=== PATIENT | male | born 1955 | race Caucasian/White ===

== ENCOUNTER 2019-11-20 11:28 | Inpatient (IN) ==
[2019-11-20] MEDS: NS 1,000 ML IV SCH (13:41)
[2019-11-20] MEDS: LEVAQUIN 500 MG/D5W 500 MG/100 ML IVPB IV SCH (13:41)
[2019-11-20] MEDS: PROTONIX IV SCH (13:41)
[2019-11-20 13:56] LABS: BASO# 0.13 X1000 (0.0-0.2); BASO% 0.6 % (0.0-0.8); EOS# 0.02 X1000 (0.0-0.7); EOS% 0.1 % (0.0-10.0); HEMATOCRIT 44.9 % (42.0-52.0); HEMOGLOBIN 15.1 g/dL (14.0-18.0); IMM GRAN# 0.15 X1000 (0.0-0.04); IMM GRAN% 0.6 % (0.0-0.5); LYMPH# 3.71 X1000 (1.2-3.4); LYMPH% 15.7 % (20.5-51.1); MCH 30.4 PG (27-31); MCHC 33.6 g/dL (33-37); MCV 90.3 FL (81-99); MONO# 2.28 X1000 (0.11-0.59); MONO% 9.7 % (1.7-9.3); MPV 11.8 FL (7.4-10.4); NEUT# 17.33 X1000 (1.4-6.5); NEUT% 73.3 % (42.2-75.2); PLT 186 X1000 (130-400); RBC 4.97 XMIL (4.7-6.1); RDW 13.6 % (11.5-14.5); WBC 23.62 X1000 (4.8-10.8)
[2019-11-20 14:15] LABS: AGAP 16; ALBUMIN 3.9 g/dL (3.5-5.0); ALKALINE PHOSPHATASE 78 U/L (32-122); BUN 21 mg/dL (8-22); CHLORIDE 93 mmol/L (98-107); COSMO 275; CREATININE 1.1 mg/dL (0.7-1.2); ESTIMATED GFR > 60; GLUCOSE 205 mg/dL (70-104); GOT 24 U/L (10-34); GPT 32 U/L (10-44); LIPASE 20 U/L (13-60); POTASSIUM 4.3 mmol/L (3.5-5.1); SODIUM 133 mmol/L (136-145); TCO2 24 mmol/L (25-35); TOTAL BILIRUBIN 0.96 mg/dL (0.20-1.00); TOTAL PROTEIN 7.7 g/dL (6.3-8.3)
[2019-11-20 14:18] LABS: BANDS 2 % (0-1); LYMPHS 12 % (21-51); SEGS 78 % (42-75)
[2019-11-20 14:19] LABS: LARGE PLATELETS OCCASIONAL
[2019-11-20 14:20] LABS: ANISOCYTOSIS 1+
[2019-11-20] MEDS: ZOSYN 3.375 GM in NS 50 ML IV SCH ×4 (15:40→22:01)
[2019-11-20] MEDS ORDERED: ZOSYN ONE (16:38)
[2019-11-20] MEDS: TYLENOL PO PRN (18:34)
--- NOTE | 2019-11-20 20:47 | HISTORY AND PHYSICAL ---
CHIEF COMPLAINT: Left-sided flank pain, left testicle pain since yesterday. HISTORY OF PRESENT ILLNESS: He is a 64-year-old white gentleman who came to my office with the above complaints. Patient has inflamed prostate with tenderness, has epididymitis, left side worse than the right side. Positive percussion sign noted. Ultrasound showed splenomegaly, gallstones, and kidney stones in the left kidney. White cell count 24,000. He is basically admitted to the hospital with arthritis, epididymitis with impending orchitis and very symptomatic. He needs aggressive IV antibiotics. In my office urine dipstick is positive for infection. As a result, a hospital admission was warranted. The patient was seen last in my office 07/24/2019. PAST MEDICAL HISTORY: Gallstones, diverticulosis, CAD status post bypass surgery, type 2 diabetes, metabolic syndrome, fatty liver, borderline splenomegaly due to LAWSON, hyperlipidemia, hypertension, partial biceps tendon ruptures on both sides, kidney stones, sleep apnea with apnea- hypopnea index 21 per hour, PAF, prepatellar bursitis, right knee, resolving. PAST SURGICAL HISTORY: DNS surgery repair, right hand fracture, and bypass surgery. MEDICATIONS: Metformin 500 p.o. b.i.d., vitamin C 250 daily, Eliquis 5 mg p.o. b.i.d., Januvia 100 daily, metoprolol 50 p.o. b.i.d., aspirin 81 mg daily, amlodipine 5 mg daily, Crestor 5 mg daily, hydrochlorothiazide 25 daily, MiraLAX 17 grams daily, Urocit, potassium 15 mEq daily. ALLERGIES: Not known. SOCIAL HISTORY: 28 years, one child. Lives in [place]. Working in [employer] and [employer]. No smoking. No alcohol. No drug abuse. FAMILY HISTORY: Father had a bypass surgery, is alive. Mom of breast cancer in 1989. HEALTH MAINTENANCE: Flu vaccine refused. Last tetanus Tdap 2018. Last digital prostate exam 02/2018, colonoscopy [address] Bergeron. REVIEW OF SYSTEMS: HEENT: No headache. No vision problem. No earache. No sore throat. Neck: No goiter. No lymphadenopathy. No bruit. Cardiopulmonary: No chest pain, shortness of breath, PND, orthopnea. GI: No nausea, vomiting, abdominal pain. Belly pain on the left side and dysuria and frequency. Left testicle pain. Musculoskeletal: No joint pain. Neurologic: No focal symptoms or weakness. PHYSICAL EXAMINATION: VITAL SIGNS: Temperature 99.2 degrees, pulse is 70. Vitals are stable. 5 feet 11 and 239 pounds. HEENT: Atraumatic, normocephalic. Pupils equal, react to light. TMs are normal. Nose and throat within normal limits. NECK: Supple. No lymphadenopathy. No goiter. CHEST: Bilateral air entry. HEART: Sounds are regular. No murmur. ABDOMEN: Belly is soft, nontender. Good bowel sounds. GENITOURINARY: Prostate is boggy, tender and the left testicle is inflamed. Positive Prehn's sign. NEUROLOGIC: No neurological deficits. INVESTIGATIONS: White cell count 23, hematocrit 44, platelets 186,000. SMA 7 is normal. Sodium 133. LFTs were normal. Ultrasound of the abdomen, kidney stones in the left kidney, gallstones, splenomegaly, fatty liver, epididymitis. Blood cultures, urine cultures are pending. ASSESSMENT AND PLAN: 1. A 64-year-old white gentleman admitted to the hospital with epididymitis and prostatitis. Plan is will use Levaquin and Zosyn. Follow up on urine cultures and blood cultures. Intravenous fluids. 2. Hyponatremia. 3. Deep venous thrombosis and gastrointestinal prophylaxes with Lovenox and Nexium and Protonix. Slowly reconcile home medications. He does not need Lovenox since he is on Eliquis. 4. Type 2 diabetes. Sliding scale insulin coverage. 5. CT renal stone search. 6. Coronary artery disease status post bypass surgery. Continue on secondary prevention. 7. Paroxysmal atrial fibrillation. On Eliquis. 8. Asymptomatic gallstones. Will follow up. cc: Robert Alegria MD
[2019-11-20] MEDS: CRESTOR PO SCH (22:01)
[2019-11-20] MEDS: ELIQUIS PO SCH (22:01)
[2019-11-20] MEDS: NORVASC PO SCH (22:02)
[2019-11-20] MEDS: LOPRESSOR PO SCH (22:02)
[2019-11-21] MEDS: ZOSYN 3.375 GM in NS 50 ML IV SCH ×3 (01:54→17:40)
[2019-11-21] MEDS: TYLENOL PO PRN ×2 (03:38→21:53)
[2019-11-21 06:12] LABS: BASO# 0.06 X1000 (0.0-0.2); BASO% 0.4 % (0.0-0.8); EOS# 0.23 X1000 (0.0-0.7); EOS% 1.5 % (0.0-10.0); HEMATOCRIT 42.5 % (42.0-52.0); HEMOGLOBIN 14.3 g/dL (14.0-18.0); IMM GRAN% 0.6 % (0.0-0.5); LYMPH# 3.37 X1000 (1.2-3.4); LYMPH% 21.6 % (20.5-51.1); MCH 30.6 PG (27-31); MCHC 33.6 g/dL (33-37); MCV 90.8 FL (81-99); MONO# 1.77 X1000 (0.11-0.59); MONO% 11.3 % (1.7-9.3); MPV 12.2 FL (7.4-10.4); NEUT# 10.09 X1000 (1.4-6.5); NEUT% 64.6 % (42.2-75.2); PLT 141 X1000 (130-400); RBC 4.68 XMIL (4.7-6.1); RDW 13.4 % (11.5-14.5); WBC 15.62 X1000 (4.8-10.8)
[2019-11-21 06:28] LABS: AGAP 11; BUN 18 mg/dL (8-22); CALCIUM 9.2 mg/dL (8.8-10.2); CHLORIDE 96 mmol/L (98-107); COSMO 274; CREATININE 1.1 mg/dL (0.7-1.2); ESTIMATED GFR > 60; GLUCOSE 161 mg/dL (70-104); POTASSIUM 3.9 mmol/L (3.5-5.1); SODIUM 134 mmol/L (136-145); TCO2 27 mmol/L (25-35)
[2019-11-21] MEDS ORDERED: MIRALAX PO SCH (09:00)
[2019-11-21] MEDS: ASPIRIN PO SCH (10:29)
[2019-11-21] MEDS: LOPRESSOR PO SCH ×2 (10:29→21:36)
[2019-11-21] MEDS: VITAMIN C PO SCH (10:29)
[2019-11-21] MEDS: HYDROCHLOROTHIAZIDE PO SCH (10:29)
[2019-11-21] MEDS: JANUVIA PO SCH (10:30)
[2019-11-21] MEDS: ELIQUIS PO SCH ×2 (10:30→21:36)
[2019-11-21 11:08] LABS: HEPATITIS PROFILE ACUTE SEE COMMENTS
[2019-11-21] MEDS: PROTONIX IV SCH (12:33)
[2019-11-21] MEDS: SODIUM CHLORIDE 0.9% INJ SCH (12:33)
[2019-11-21] MEDS: LEVAQUIN 500 MG/D5W 500 MG/100 ML IVPB IV SCH (14:19)
[2019-11-21] MEDS: NS 1,000 ML IV SCH (17:45)
--- NOTE | 2019-11-21 20:28 | PROGRESS NOTE ---
DATE: 11/21/2019 SUBJECTIVE: The patient is a little better. No belly pain. Has some testicular pain, elevation is helping. PHYSICAL EXAMINATION: Temperature is 98 degrees, vitals are stable.HEENT: Within normal limits. Neck: Supple. Chest: Bilateral air entry. Heart: Sounds are regular. Abdomen: Belly is soft, nontender. Good bowel sounds. 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 INVESTIGATIONS: White cell count 15, hematocrit 42, platelets 141,000. Sodium 134, potassium 3.1, BUN 18, creatinine 1.1. Hepatitis panel was negative. Urine cultures, blood cultures are pending. ASSESSMENT: 1. Left epididymitis. 2. Prostatitis. 3. History of kidney stones. 4. History of gallstones. PLAN: IV fluids, IV Levaquin and Zosyn, and we will follow up on the cultures and if he continues to improve we will treat as an outpatient with oral antibiotics for 4 to 6 weeks. LEVEL OF DOCUMENTATION: 25 minutes. cc: Robert Alegria MD
[2019-11-21] MEDS: NORVASC PO SCH (21:36)
[2019-11-21] MEDS: CRESTOR PO SCH (21:36)
[2019-11-22] MEDS: ZOSYN 3.375 GM in NS 50 ML IV SCH ×6 (00:56→23:16)
[2019-11-22 06:51] LABS: BASO# 0.05 X1000 (0.0-0.2); BASO% 0.5 % (0.0-0.8); EOS% 5.2 % (0.0-10.0); HEMATOCRIT 42.1 % (42.0-52.0); HEMOGLOBIN 14.1 g/dL (14.0-18.0); IMM GRAN# 0.05 X1000 (0.0-0.04); IMM GRAN% 0.5 % (0.0-0.5); LYMPH# 2.22 X1000 (1.2-3.4); LYMPH% 23.2 % (20.5-51.1); MCH 30.3 PG (27-31); MCHC 33.5 g/dL (33-37); MCV 90.5 FL (81-99); MONO# 1.12 X1000 (0.11-0.59); MONO% 11.7 % (1.7-9.3); MPV 12.2 FL (7.4-10.4); NEUT# 5.63 X1000 (1.4-6.5); NEUT% 58.9 % (42.2-75.2); PLT 160 X1000 (130-400); RBC 4.65 XMIL (4.7-6.1); RDW 13.3 % (11.5-14.5); WBC 9.57 X1000 (4.8-10.8)
[2019-11-22 07:18] LABS: AGAP 12; BUN 15 mg/dL (8-22); CALCIUM 9.2 mg/dL (8.8-10.2); CHLORIDE 101 mmol/L (98-107); COSMO 280; CREATININE 0.9 mg/dL (0.7-1.2); ESTIMATED GFR > 60; GLUCOSE 159 mg/dL (70-104); POTASSIUM 3.9 mmol/L (3.5-5.1); SODIUM 138 mmol/L (136-145); TCO2 25 mmol/L (25-35)
[2019-11-22] MEDS: NS 1,000 ML IV SCH ×4 (07:44→23:10)
[2019-11-22] MEDS: ASPIRIN PO SCH (09:00)
[2019-11-22] MEDS: ELIQUIS PO SCH ×2 (09:00→23:09)
[2019-11-22] MEDS: JANUVIA PO SCH (09:00)
[2019-11-22] MEDS: VITAMIN C PO SCH (09:00)
[2019-11-22] MEDS: LEVAQUIN 500 MG/D5W 500 MG/100 ML IVPB IV SCH (14:59)
[2019-11-22] MEDS ORDERED: BLISTEX MEDICATED BERRY LIP BALM TOP PRN (15:05)
[2019-11-22] MEDS: HYDROCHLOROTHIAZIDE PO SCH (15:33)
[2019-11-22] MEDS: LOPRESSOR PO SCH ×2 (15:33→23:09)
[2019-11-22] MEDS: PROTONIX IV SCH (15:34)
--- NOTE | 2019-11-22 16:54 | PROGRESS NOTE ---
DATE: 11/22/2019 SUBJECTIVE: The patient is doing better and urine cultures grew Escherichia coli sensitive to Levaquin. PHYSICAL EXAMINATION: On exam, the patient has temperature of 99.9 degrees, pulse 77. Vitals are stable. Physical exam with no change. ASSESSMENT: Urinary tract infection due to prostatitis, epididymitis No torsion on the ultrasound. PLAN: Continue Levaquin and Zosyn and slowly change to Levaquin. White cell count coming back to normal. If he is stable tomorrow we will transition him to p.o. antibiotics for at least 4 to 6 weeks. Discussed the plan of care. Continue IV fluids. DVT GI prophylaxis as per the order sheet, on Eliquis and proton pump inhibitor, and currently stable. LEVEL OF DOCUMENTATION: 25 minutes. cc: Robert Alegria MD MTDD
[2019-11-22] MEDS: MIRALAX PO SCH (21:00)
[2019-11-22] MEDS: CRESTOR PO SCH (23:09)
[2019-11-22] MEDS: NORVASC PO SCH (23:09)
[2019-11-23] MEDS: ZOSYN 3.375 GM in NS 50 ML IV SCH ×5 (04:13→21:34)
[2019-11-23 07:10] LABS: BASO# 0.06 X1000 (0.0-0.2); BASO% 0.8 % (0.0-0.8); EOS# 0.59 X1000 (0.0-0.7); EOS% 8.1 % (0.0-10.0); HEMATOCRIT 42.1 % (42.0-52.0); HEMOGLOBIN 13.9 g/dL (14.0-18.0); IMM GRAN# 0.03 X1000 (0.0-0.04); IMM GRAN% 0.4 % (0.0-0.5); LYMPH# 2.26 X1000 (1.2-3.4); MCH 29.9 PG (27-31); MCV 90.5 FL (81-99); MONO# 1.15 X1000 (0.11-0.59); MONO% 15.8 % (1.7-9.3); MPV 11.7 FL (7.4-10.4); NEUT% 43.9 % (42.2-75.2); PLT 171 X1000 (130-400); RBC 4.65 XMIL (4.7-6.1); RDW 13.3 % (11.5-14.5); WBC 7.29 X1000 (4.8-10.8)
[2019-11-23 07:32] LABS: AGAP 13; BUN 13 mg/dL (8-22); CALCIUM 9.1 mg/dL (8.8-10.2); CHLORIDE 98 mmol/L (98-107); COSMO 277; CREATININE 1.1 mg/dL (0.7-1.2); ESTIMATED GFR > 60; GLUCOSE 152 mg/dL (70-104); POTASSIUM 4.2 mmol/L (3.5-5.1); SODIUM 137 mmol/L (136-145); TCO2 26 mmol/L (25-35)
[2019-11-23] MEDS: ELIQUIS PO SCH ×2 (09:05→21:35)
[2019-11-23] MEDS: ASPIRIN PO SCH (09:05)
[2019-11-23] MEDS: VITAMIN C PO SCH (09:05)
[2019-11-23] MEDS: JANUVIA PO SCH (09:06)
[2019-11-23] MEDS: PROTONIX IV SCH (11:47)
[2019-11-23] MEDS: SODIUM CHLORIDE 0.9% INJ SCH (11:47)
[2019-11-23] MEDS: NS 1,000 ML IV SCH ×2 (12:57→15:49)
[2019-11-23] MEDS: LEVAQUIN 500 MG/D5W 500 MG/100 ML IVPB IV SCH (14:48)
[2019-11-23] MEDS: LOPRESSOR PO SCH ×2 (15:48→21:35)
[2019-11-23] MEDS: HYDROCHLOROTHIAZIDE PO SCH (15:49)
[2019-11-23] MEDS: TYLENOL PO PRN (16:57)
--- NOTE | 2019-11-23 18:00 | PROGRESS NOTE ---
DATE: 11/23/2019 SUBJECTIVE: The patient is feeling better. Afebrile. Urine cultures grew Escherichia coli. ESBL negative. PHYSICAL EXAMINATION: Temperature is 97 degrees vitals are stable. Physical exam decreased tenderness in the left testicle. LABS: White cell count came back normal. Repeat urine cultures and blood cultures were negative. ASSESSMENT AND PLAN: Epididymitis, prostatitis. Continue outpatient antibiotics Levaquin for 1 month and if he is stable will discharge in the morning and discontinue intravenous fluids. Continue present treatment. LEVEL OF DOCUMENTATION: 25 minutes. cc: Robert Alegria MD
[2019-11-23] MEDS: CRESTOR PO SCH (21:35)
[2019-11-23] MEDS: NORVASC PO SCH (21:35)
[2019-11-23] MEDS: MIRALAX PO SCH (21:35)
[2019-11-24] MEDS: ZOSYN 3.375 GM in NS 50 ML IV SCH ×6 (01:08→22:08)
[2019-11-24] MEDS: JANUVIA PO SCH (10:18)
[2019-11-24] MEDS: HYDROCHLOROTHIAZIDE PO SCH (10:19)
[2019-11-24] MEDS: ASPIRIN PO SCH (10:19)
[2019-11-24] MEDS: LOPRESSOR PO SCH ×2 (10:19→20:23)
[2019-11-24] MEDS: ELIQUIS PO SCH ×2 (10:19→20:24)
[2019-11-24] MEDS: VITAMIN C PO SCH (10:19)
[2019-11-24] MEDS: PROTONIX IV SCH (10:24)
[2019-11-24] MEDS: SODIUM CHLORIDE 0.9% INJ SCH (10:24)
--- NOTE | 2019-11-24 10:43 | Diag Imaging Result Doc PS360 ---
EXAM: US SCROTUM INDICATION: left testicular pain TECHNIQUE: COMPARISON: None. FINDINGS: The testicles are grossly normal in echotexture with no discrete testicular mass or cyst. The right testicle measures 4.2 cm and the left testicle measures 3.8 cm in the greatest dimensions. Both testicles exhibit normal Doppler flow. Both epididymides are prominent and exhibits increased Doppler flow suggesting epididymitis. There are a couple of epididymal head cysts on the left are subcentimeter in size. At the left epididymal tail, there is an irregular hypoechoic focus measuring up to 1.2 cm there is increased blood flow around the lesion. An epididymal abscess cannot be excluded. There are bilateral scrotal hydroceles. IMPRESSION: 1.Prominent epididymides bilaterally with increased Doppler flow suggesting epididymitis with an ill-defined low echotexture focus in the left epididymal tail. Epididymal abscess cannot be excluded. 2.Bilateral hydroceles. Electronically signed by Cholo Yeung 11/24/2019 10:41 AM
[2019-11-24 11:28] LABS: INR 1.18; PROTIME 15.2 Seconds (11.0-16.0)
[2019-11-24] MEDS: LEVAQUIN 500 MG/D5W 500 MG/100 ML IVPB IV SCH (13:23)
--- NOTE | 2019-11-24 15:30 | PROGRESS NOTE ---
DATE: 11/24/2019 SUBJECTIVE: The patient is not getting any better today. On exam left testicle is swollen and extremely red, positive Prehn's sign. He was getting better 2 days ago, now he is worsening. OBJECTIVE: Vital signs: Temperature 99.3 degrees, pulse 58. Vitals are stable. HEENT: Within normal limits. Neck: Supple. Chest: Bilateral air entry. Heart: Sounds are regular. Abdomen: Belly is soft, nontender. Left testicle is extremely tender. LABORATORY: Urine cultures; E. coli and ESBL negative in my office. Repeat urine blood cultures were negative. Repeat ultrasound of the testicle showed possible abscess consistent with epididymitis. ASSESSMENT AND PLAN: 1. Epididymitis and abscess. Hold the discharge. Consider Urology consult. 2. Peripherally inserted central catheter line. Consider IV antibiotics at home. 3. Continue IV Levaquin and Zosyn for the time being, and we will hold the discharge. I spoke to Dr. Flores' he is going to follow up. LEVEL OF DOCUMENTATION: 25 minutes. cc: Robert Alegria MD
--- NOTE | 2019-11-24 16:02 | CONSULTATION ---
DATE OF CONSULTATION: 11/24/2019 CHIEF COMPLAINT: Scrotal pain. HISTORY OF PRESENT ILLNESS: This 64-year-old male was admitted for treatment of prostatitis and epididymitis. His scrotal ultrasound was consistent with hyperemic epididymis on each side. Testes appeared normal. The patient has been on IV Zosyn and Levaquin. He states he feels better and would like to go home. A followup ultrasound revealed the hyperemic epididymis on each side and a comment was made of possible epididymal abscess. The patient states he does not feel any worse and end and is in fact getting better. The patient states he has a long history of a slowing stream and double voiding. He occasionally has urgency and has nocturia 2 to 3 per night. He is not taking any medication for obstructive voiding symptoms. He has a history of kidney stones and had ureteroscopy and stone extraction about 5 years ago. He denies any problems since. The patient's urine culture in Dr. Alegria's office grew Escherichia coli, ESBL negative sensitive to most antibiotics. PAST MEDICAL HISTORY: Diabetes, coronary artery disease, elevated cholesterol, history of kidney stones, hypertension, sleep apnea. CURRENT MEDICATIONS: Documented on the chart and include IV Levaquin and Zosyn. PAST SURGICAL HISTORY: Coronary artery bypass grafting, right hand fracture repair, right ureteroscopy and stone extraction. SOCIAL HISTORY: No known drug allergies. No tobacco use. No alcohol use. ALLERGIES: He denies any problems with chest pains, breathing problems or bowel problems. He states that when he was having bladder pain and prostate pain he saw some blood in his urine but that has resolved after starting IV antibiotics. PHYSICAL EXAMINATION: General: An obese, age apparent, normally developed, white male, oriented in all ways and cooperative. HEENT: Normal for age. Lungs: Clear. Cardiovascular: Regular rate and rhythm. Abdomen: Obese soft, nontender. No hepatosplenomegaly or masses. Normal bowel sounds. Genitourinary: Normal male. Both testes are down. The testes are palpably normal on each side. The epididymis is indurated and swollen on each side. The left side is somewhat tender but there is no fluctuance. Neurologic: No focal deficits. Extremities: No clubbing, cyanosis, or edema. LABORATORY EVALUATION: He has a white count of 7.29, hemoglobin 13.9, hematocrit of 42.1, and platelets are 171,000. Serum electrolytes are normal. BUN 13, creatinine 1.1. Serum glucose is 152. Followup urine cultures obtained in the hospital both blood and urine are no growth. IMPRESSION: 1. Enlarged prostate with obstructive voiding. 2. Resolving prostatitis and bilateral epididymitis. RECOMMEND: 1. Start Flomax 0.4 mg b.i.d. 2. Continue IV antibiotics as scheduled. 3. A scrotal support. 4. Will see patient in the office in 1 week. Thank you for this consultation. cc: MD Robert Romero MD
[2019-11-24] MEDS: NORVASC PO SCH (20:23)
[2019-11-24] MEDS: CRESTOR PO SCH (20:23)
[2019-11-24] MEDS: MIRALAX PO SCH (20:24)
[2019-11-24] MEDS: TYLENOL PO PRN (21:27)
[2019-11-25] MEDS: FLOMAX PO SCH ×3 (02:27→21:20)
[2019-11-25] MEDS: ZOSYN 3.375 GM in NS 50 ML IV SCH ×4 (04:23→21:21)
[2019-11-25] MEDS: PROTONIX PO SCH ×2 (05:07→06:07)
[2019-11-25] MEDS: JANUVIA PO SCH (08:00)
[2019-11-25] MEDS: ASPIRIN PO SCH (08:01)
[2019-11-25] MEDS: ELIQUIS PO SCH ×2 (08:01→21:20)
[2019-11-25] MEDS: VITAMIN C PO SCH (08:01)
[2019-11-25] MEDS: LOPRESSOR PO SCH ×2 (08:01→21:20)
[2019-11-25] MEDS: HYDROCHLOROTHIAZIDE PO SCH (08:01)
--- NOTE | 2019-11-25 12:45 | PROGRESS NOTE ---
DATE: 11/25/2019 SUBJECTIVE: I appreciated Dr. Flores consult. The patient was placed on the truss and started on Flomax. OBJECTIVE: Today on my exam, decreased swelling of the left testicle. Temperature is 97 degrees, vitals are stable. PICC line was placed on the right side. ASSESSMENT: 1. Prostatitis with benign prostatic hypertrophy. 2. Left epididymitis. 3. Diabetes. 4. Coronary artery disease. PLAN: Plan of care is unable to arrange outpatient IV antibiotics. We will keep him until Wednesday. Continue IV Levaquin and Zosyn. Elevation of the truss, and continue present treatment. Discussed with [place] social work msw, we will arrange IV Levaquin once daily for 3 weeks on Wednesday and discharge. LEVEL OF DOCUMENTATION: 25 minutes. cc: Robert Alegria MD
[2019-11-25] MEDS: LEVAQUIN 500 MG/D5W 500 MG/100 ML IVPB IV SCH (13:51)
[2019-11-25] MEDS: TYLENOL PO PRN ×2 (16:32→22:11)
[2019-11-25] MEDS: CRESTOR PO SCH (21:20)
[2019-11-25] MEDS: NORVASC PO SCH (21:20)
[2019-11-25] MEDS: MIRALAX PO SCH (21:21)
[2019-11-26] MEDS: ZOSYN 3.375 GM in NS 50 ML IV SCH ×5 (04:09→23:15)
[2019-11-26] MEDS: PROTONIX PO SCH (06:03)
[2019-11-26] MEDS: LOPRESSOR PO SCH ×2 (08:46→21:45)
[2019-11-26] MEDS: FLOMAX PO SCH ×2 (08:46→21:45)
[2019-11-26] MEDS: ASPIRIN PO SCH (08:46)
[2019-11-26] MEDS: HYDROCHLOROTHIAZIDE PO SCH (08:46)
[2019-11-26] MEDS: ELIQUIS PO SCH ×2 (08:46→21:45)
[2019-11-26] MEDS: JANUVIA PO SCH (08:47)
[2019-11-26] MEDS: VITAMIN C PO SCH (08:47)
--- NOTE | 2019-11-26 12:59 | PROGRESS NOTE ---
DATE: 11/26/2019 SUBJECTIVE: The patient is getting better. No complaints. OBJECTIVE: Vitals are stable. Physical examination, no change. ASSESSMENT: 1. Status post peripherally inserted central catheter line on the right side. 2. Prostatitis. 3. Epididymitis. 4. Diabetes. 5. Coronary artery disease. PLAN: Plan is to continue present treatment. Arrange outpatient IV antibiotics with Levaquin 500 mg daily for 3 weeks and we will discharge in the morning. LEVEL OF DOCUMENTATION: 15 minutes. cc: Robert Alegria MD
[2019-11-26] MEDS: LEVAQUIN 500 MG/D5W 500 MG/100 ML IVPB IV SCH (13:29)
[2019-11-26] MEDS: MIRALAX PO SCH (21:45)
[2019-11-26] MEDS: CRESTOR PO SCH (21:45)
[2019-11-26] MEDS: NORVASC PO SCH (21:45)
[2019-11-26] MEDS: TYLENOL PO PRN (21:50)
[2019-11-27] MEDS: PROTONIX PO SCH (06:00)
[2019-11-27] MEDS: ZOSYN 3.375 GM in NS 50 ML IV SCH ×2 (06:00→10:26)
[2019-11-27] MEDS: ASPIRIN PO SCH (09:01)
[2019-11-27] MEDS: JANUVIA PO SCH (09:01)
[2019-11-27] MEDS: ELIQUIS PO SCH (09:02)
[2019-11-27] MEDS: LOPRESSOR PO SCH (09:02)
[2019-11-27] MEDS: FLOMAX PO SCH (09:02)
[2019-11-27] MEDS: VITAMIN C PO SCH (09:02)
[2019-11-27] MEDS: HYDROCHLOROTHIAZIDE PO SCH (09:02)
[2019-11-27 11:34] VITALS: BP 114/62
[2019-11-27] MEDS: LEVAQUIN 500 MG/D5W 500 MG/100 ML IVPB IV SCH (13:54)
--- NOTE | 2019-11-28 08:21 | DISCHARGE SUMMARY ---
ADMISSION DATE: 11/20/2019 DISCHARGE DATE: 11/27/2019 DISCHARGE DIAGNOSIS: Acute prostatitis associated with epididymitis and orchitis. SECONDARY DIAGNOSES: 1. Gallstones-asymptomatic. 2. Kidney stones, stable. 3. Diverticulosis. 4. Coronary artery disease status post bypass surgery. 5. Type 2 diabetes. 6. Metabolic syndrome. 7. Fatty liver with LAWSON. 8. Hyperlipidemia. 9. Hypertension. 10. Sleep apnea PAF. CONSULTANTS: Dr. Flores. PROCEDURES: Ultrasound of the testicles consistent with epididymitis, questionable abscess. BRIEF HISTORY: Please see the H and P that was done on 11/20/2019. In brief, he is a 64-year-old white gentleman who was admitted to the hospital with a one-day history of abdominal pain and testicular pain. The patient was found to have acute prostatitis and digital rectal exam associated with left epididymitis. He has a positive Prehan'sign. Outpatient ultrasound showed consistent with increased blood flow with epididymitis and mild hydrocele. White cell count 24,000. He has comorbid conditions. As a result, he was admitted to the hospital to prevent the sepsis. HOSPITAL COURSE: He was given IV fluids, IV Levaquin and Zosyn. Urine cultures grew ESBL negative E. Coli as an outpatient setting. Blood cultures were negative. Patient is responding on the white cell count, but clinically he has worsening of the testicular pain and swelling. Urology consult was obtained by Dr. Flores. He recommended elevation of scrotum with truss continue IV antibiotics for at least 3 weeks. As a result, a PICC line was placed on the right side. Arranged home IV antibiotics with IV Levaquin 500 daily for 3 weeks. LABORATORY: At the time of discharge, his labs as follows. White cell count 7.2, hematocrit 42, and platelet 171,000. PT/INR is normal. Sodium 137, potassium 4.2, BUN 13, creatinine 1.1, and glucose 152. Hepatitis panel was negative. DISCHARGE INSTRUCTIONS: 1. Outpatient IV antibiotics Levaquin daily for 3 weeks, metformin 500 p.o. b.i.d., vitamin C 250 mg daily, Eliquis 5 mg p.o. b.i.d., Januvia 100 daily, metoprolol 50 p.o. b.i.d., aspirin 81 mg daily, amlodipine 5 mg at bedtime, Crestor 5 mg daily, hydrochlorothiazide 25 daily, MiraLAX 17 g daily, Flomax 0.4 mg p.o. b.i.d. 2. Follow up in my office in 10 days as well as Dr[address] Flores. cc: Robert Alegria MD MTDD
== END 2019-11-27 14:31 | disposition home health service (06) | DRG 728 ==
LOC: DIRADM 11:28 → EDIPHOLD 12:42 → 4N 14:41
PROVIDERS: ADMIT Internal Medicine; ATTEND Internal Medicine